=== PATIENT | male | born 1975 | race Caucasian/White ===

== ENCOUNTER 2024-02-17 07:00 | Day surgery (SDC) | payer OTHER ==
[2024-02-14 09:19] VITALS: BP 133/80
[~2024-02-17] VITALS: Ht 175.3 cm; Wt 102.3 kg
[~2024-02-17 07:00] MED LIST: AVAPRO300 MG PO; IBLOOD GLUCOSE TEST STRIP 1 EA TEST VI PRN; LACTATED RINGER'S 1,000 ML IV SCH; LIDOCAINE HCL 1% 5 ML SDV INJ ONE; MIDAZOLAM HCL 5 MG/5 ML VIAL IV PRN; fentaNYL citrate 100 MCG/2 ML VIAL IV PRN
[2024-02-17 07:10] VITALS: BP 132/75
[2024-02-17] MEDS ORDERED: ALLER-TEC10 MG PO (07:20)
--- NOTE | 2024-02-17 07:27 | NUR ---
PT NOT AVAILABLE FOR VISIT. PROVIDED PRAYER.
[2024-02-17] MEDS ORDERED: propofoL 200 MG/20 ML VIAL ONE (08:01)
[2024-02-17] MEDS ORDERED: LIDOCAINE HCL 2% 5 ML SDV ONE (08:49)
[2024-02-17 09:31] VITALS: BP 113/74
--- NOTE | 2024-02-17 09:51 | NUR ---
02/17/24 0951 Kat Tan 0850- PT ARRIVES TO THE PACU WITH A NATURAL AIRWAY ON 2L OF O2. PT ABDOMEN IS SOFT AND NONDISTENEDED. ALL MONITORS PUT IN PLACE. LR INFUSING IN R WRIST. PT IS NONREACTIVE TO VERBAL AND TACTILE STIMULI. VSS. 0852- PT WAKES TO TACTILE STIMULI AND IS ORIENTED TO PACU. PT DENIES PAIN AND NAUSEA. PT IS ENCOURAGED TO PASS GAS. PT IS LIFTING HIS HEAD OFF THE PILLOW AND LOOKING AROUND THE ROOM. PT RESTING WITH EYES CLOSED WITH NO APPARENT DISTRESS. 0909- PT O2 SATS REMAIN ABOVE 95%, O2 REMOVED AND TURNED OFF. PT DENIES PAIN AND NAUSEA. 0920-PLAN OF CARE DISCUSSED WITH PT. HOB INCREASED AND PT ROLLED ONTO HIS BACK. PT SIPPING ON WATER AND TOLERATING WELL. 0925-DC PAPERWORK AND EDUCATION GONE OVER. NO QUESTIONS OR CONCERNS. 0930- VSS. ALL MONITORS REMOVED. IV REMOVED. PT DRESSING IDEPENDENTLY WITH NO ISSUES. 0939- PT AMBULATES TO WHEECHAIR WITH A STEADY AND EVEN GAIT. PT CONTINUES TO DENY PAIN AND NAUSEA, QUESTIONS OR CONCERNS. PT HAS ALL BELONGINGS AND EDUCATION. PT DC PACU VIA WHEELCHAIR.
--- NOTE | 2024-02-17 11:00 | OR ---
[facility] [address], [place] [address] Signed DATE OF OPERATION: 02/17/2024 SURGEON: Cari Scott MD PREOPERATIVE DIAGNOSIS: Screening colonoscopy. POSTOPERATIVE DIAGNOSIS: A 4 mm polyps x2 at 8 cm in the rectum. PROCEDURE: Colonoscopy with cold biopsy. ESTIMATED BLOOD LOSS: None. 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 He was asked to see me for his initial screening colonoscopy. He has no lower GI complaints. There is no family history of colon cancer or polyps. In the office, I gave him a pamphlet on colonoscopy. He understands the nature of the test. There is risk including, but not limited to gas bloating, crampy abdominal pain, bleeding, perforation requiring surgery, and missed diagnosis. We also reviewed the written instructions for a bowel prep line by line. In addition, he tells me that he quit drinking years ago, but he still likes some marijuana every night before he goes to bed to help relax in the evenings. Consequently, we asked for monitored anesthesia care with propofol infusion that worked out very well for him today. He had expressed understanding and wished to proceed. PROCEDURE NOTE: Denins was taken into our endoscopy suite and placed in the left lateral decubitus position. He was given monitored anesthesia care with propofol infusion per our nurse container crane operator. A digital rectal exam was performed. This was unremarkable. No external hemorrhoids. No masses. He had good sphincter tone. The adult colonoscope was introduced and advanced quite readily up into the cecum with only mild abdominal compression and little extra propofol. His prep was quite excellent. We could easily see the appendiceal orifice and the ileocecal valve. The scope was then slowly withdrawn. He had no pathology throughout the entire colon. In the rectum at 8 cm, he had two tiny 4 mm hyperplastic appearing polyps. They were easily removed with the help of the cold biopsy forceps. Upon retroflexion of scope, we did not see any additional Electronically Signed By: CARI SCOTT MD 02/17/24 1100 PATIENT NAME: DENNIS DU OPERATIVE REPORT DATE OF : 73 REPORT #: [id number] PHYSICIAN: CARI SCOTT MD PCP: BÁRBARA LY DO REPORT IS CONFIDENTIAL AND NOT TO BE RELEASED WITHOUT AUTHORIZATION [facility] [address] [place] [id number] Signed pathology above the anal canal. After this, the gas was suctioned out, colonoscope removed. Dennis tolerated the procedure quite well. RECOMMENDATIONS: Dennis will turn to my office in 7-14 days to review his results. I suspect he will be on the 10 year rotation for the hyperplastic polyps. MD AMY Campo/NURYL /[id number] cc: DO Cari Heredia MD Patient Chart Copies: BÁRBARA LY ANDREW L MD ~ Electronically Signed By: CARI SCOTT MD 02/17/24 1100 PATIENT NAME: DENNIS DU HIPOLITO OPERATIVE REPORT DATE OF : 73 REPORT #: [id number] PHYSICIAN: CARI SCOTT MD PCP: BÁRBARA LY DO REPORT IS CONFIDENTIAL AND NOT TO BE RELEASED WITHOUT AUTHORIZATION
--- NOTE | 2024-02-21 15:38 | PATH ---
[facility] [address] [facility] [place] [address] Signed SPECIMEN(S): A RECTAL POLYP AT 8 CM SPECIMEN SOURCE: A. RECTAL POLYP AT 8 CM CLINICAL HISTORY: Screening colonoscopy. Post: Colon polyps x 2 FINAL PATHOLOGIC DIAGNOSIS: Rectal polyp at 8 cm: - Hyperplastic polyp (one fragment). JVR:cml MICROSCOPIC EXAMINATION: Histologic sections of all submitted blocks are examined by light microscopy. These findings, together with the gross examination, support the pathologic diagnosis. GROSS DESCRIPTION: The specimen, labeled and designated "Abigail Farmer, rectal polyp at 8 cm," is received in formalin and consists of two vasques soft tissue fragments, ranging from 0.2-0.3 cm. Entirely submitted in (A1). AB (under the direct supervision of a pathologist) The Gross Description was prepared using a voice recognition system. The report was reviewed for accuracy; however, sound-alike word errors, addition and/or deletions may occur. If there is any question about this report, please contact Client Services. PERFORMING LABORATORY: Technical component was performed by [facility], [address] [place] [id number] (CLIA# [id number]). Professional interpretation was performed by [facility] - [facility], [address] [place] [id number] (CLIA#: [id number]). Diagnostician: Avila Lowery MD Pathologist Electronically Signed 02/21/2024 Copies: PATIENT NAME: ANUJ FARMER PATHOLOGY DATE OF : 73 REPORT #: [id number] PHYSICIAN: [facility] PATH[facility] PCP: BÁRBARA LY DO REPORT IS CONFIDENTIAL AND NOT TO BE RELEASED WITHOUT AUTHORIZATION [address] [address] Signed ~ PATIENT NAME: ANUJ FARMER PATHOLOGY DATE OF : 73 REPORT #: [id number] PHYSICIAN: [facility] PATHOLOGY PCP: BÁRBARA LY DO REPORT IS CONFIDENTIAL AND NOT TO BE RELEASED WITHOUT AUTHORIZATION
== END 2024-02-17 09:39 | disposition home or self-care (01) ==
LOC: DS 07:00
PROVIDERS: ATTEND Colon & Rectal Surgery
PROC: 0DBP8ZX Excision of Rectum, Via Natural or Artificial Opening Endoscopic, Diagnostic (ICD-10-PCS; principal; 2024-02-17 08:15)
DX: Z12.11 Encounter for screening for malignant neoplasm of colon (principal); K62.1 Rectal polyp; I10 Essential (primary) hypertension; F12.10 Cannabis abuse, uncomplicated; L30.9 Dermatitis, unspecified; Z80.42 Family history of malignant neoplasm of prostate; Z79.899 Other long term (current) drug therapy
CPT/HCPCS: 00812; J2003; J2704; J7121